=== PATIENT | female | born 1940 | race Asian ===

== ENCOUNTER 2017-10-17 17:58 | Emergency (ER) | payer SELFPAY ==
[2017-10-17 19:37] VITALS: BP 146/76
== END 2017-10-17 19:15 | disposition left against medical advice (07) ==
LOC: ED 17:58
DX: R73.9 Hyperglycemia, unspecified (principal); Z53.21 Procedure and treatment not carried out due to patient leaving prior to being seen by health care provider
CPT/HCPCS: 82962